=== PATIENT | male | born 1995 | race Asian ===

== ENCOUNTER 2020-01-03 16:28 | Emergency (ER) | payer OTHER ==
[2020-01-03] MEDS ORDERED: cefTRIAXone 1 GM VIAL IVP STA (17:16)
[2020-01-03 17:38] LABS: BASOPHILS % (AUTO) 0.4 %; EOSINOPHILS # (AUTO) 0.2 10^3/uL (0.0-0.7); EOSINOPHILS % (AUTO) 1.8 %; HGB - HEMOGLOBIN 16.4 g/dL (14.0-18.0); LYMPHOCYTES # (AUTO) 1.3 10^3/uL (1.5-3.5); LYMPHOCYTES % (AUTO) 11.5 %; MEAN CORPUSCULAR HEMOGLOBIN 31.2 pg (27.0-31.0); MEAN CORPUSCULAR HGB CONC 34.6 g/dL (32.0-36.0); MEAN CORPUSCULAR VOLUME 90.3 fL (80.0-94.0); MEAN PLATELET VOLUME 8.5 fL (7.4-11.4); MONOCYTES # (AUTO) 0.9 10^3/uL (0.0-1.0); NEUTROPHILS # (AUTO) 8.7 10^3/uL (1.5-6.6); NEUTROPHILS % (AUTO) 77.9 %; PLT - PLATELET COUNT 338 10^3/uL (130-450); RED BLOOD COUNT 5.25 10^6/uL (4.70-6.10); RED CELL DISTRIBUTION WIDTH 12.2 % (12.0-15.0); WHITE BLOOD COUNT 11.2 x10^3/uL (4.8-10.8)
[2020-01-03 17:51] LABS: BUN - BLOOD UREA NITROGEN 14 mg/dL (6-20); CALCIUM 9.6 mg/dL (8.5-10.3); CARBON DIOXIDE - CO2 32 mmol/L (21-32); CHLORIDE 97 mmol/L (101-111); CREATININE 0.9 mg/dL (0.6-1.2); GLUCOSE 104 mg/dL (70-100); SODIUM 137 mmol/L (135-145)
[2020-01-03 17:53] LABS: CRP - C-REACTIVE PROTEIN < 1.0 mg/dL (0-1.0)
--- NOTE | 2020-01-03 17:55 | ED Physician Documentation ---
History of Present Illness - Stated complaint Stated Complaint: RT HAND WOUND - Chief complaint Chief Complaint: Ext Problem - History obtained from History obtained from: Patient - History of Present Illness Timing: Yesterday Pain level max: 8 Pain level now: 8 - Additonal information Additional information: 24-year-old male presents to the emergency department with swelling and pain to the right middle finger. This started yesterday. No injury noted. He states it started at the distal aspect of the finger and has traveled proximally. Increased swelling and pain today. Unable to fully straighten the finger. No numbness or tingling. Tetanus up-to-date. The patient is right-handed Review of Systems Constitutional: denies: Fever, Chills GI: denies: Vomiting, Diarrhea Skin: denies: Rash PD PAST MEDICAL HISTORY - Past Medical History Past Medical History: No Derm: Eczema - Past Surgical History Past Surgical History: No - Present Medications Home Medications: Ambulatory Orders Medication Instructions Recorded Confirmed Cephalexin [Keflex] 500 mg PO Q6H #28 capsule 01/03/20 Sulfamethox/Trimeth 800/160 1 each PO BID #14 tablet 01/03/20 [Bactrim Ds 800/160] - Allergies Allergies/Adverse Reactions: Allergies Allergy/AdvReac Type Severity Reaction Status Date / Time hydrocodone AdvReac Rash Verified 01/03/20 16:47 - Social History Does the pt smoke?: No Smoking Status: Never smoker Does the pt drink ETOH?: Yes Does the pt have substance abuse?: No - Immunizations Immunizations are current?: Yes - POLST Patient has POLST: No PD ED PE NORMAL - Vitals Vital signs reviewed: Yes - General General: Alert and oriented X 3, No acute distress - HEENT HEENT: Moist mucous membranes - Derm Derm: Warm and dry - Extremities Extremities: Other (Right hand - Swelling and pain to the right third digit, mainly palmar aspect, starting at the distal phalanx and coming to the middle phalanx. No tenderness over the proximal phalanx or palm of the hand. No d rainage. Fingers held in slight flexion.) - Neuro Neuro: Alert and oriented X 3 Results - Vitals Vitals: Vital Signs - 24 hr 01/03/20 16:47 Temperature 37.2 C Heart Rate 90 Respiratory 16 Rate Blood Pressure 149/88 H O2 Saturation 98 Oxygen O2 Source Room air - Labs Labs: Laboratory Tests 01/03/20 01/03/20 01/03/20 17:28 17:28 17:28 WBC 11.2 H RBC 5.25 Hgb 16.4 Hct 47.4 MCV 90.3 MCH 31.2 H MCHC 34.6 RDW 12.2 Plt Count 338 MPV 8.5 Neut # (Auto) 8.7 H Lymph # (Auto) 1.3 L Ponce # (Auto) 0.9 Eos # (Auto) 0.2 Baso # (Auto) 0.0 Absolute Nucleated RBC 0.00 Nucleated RBC % 0.0 ESR 4 Sodium 137 Potassium 4.1 Chloride 97 L Carbon Dioxide 32 Anion Gap 8.0 BUN 14 Creatinine 0.9 Estimated GFR (MDRD) 102 Glucose 104 H Calcium 9.6 C-Reactive Protein < 1.0 PD MEDICAL DECISION MAKING - ED course Complexity details: reviewed results, re-evaluated patient, considered differential, d/w patient, d/w business systems consultant ED course: 24-year-old male with what appears to be a tenosynovitis. Reviewed the case with Dr. Clemens, Orthopedics, who recommends a dose of IV antibiotics and [place]. No tenderness over the palmar aspect of the hand. If he is not improved by tomorrow, he will likely need surgical intervention. Patient counseled regarding signs and symptoms for which I believe and urgent re-evaluation would be necessary. Patient with good understanding of and agreement to plan and is comfortable going home at this time This document was made in part using voice recognition software. While efforts are made to proofread this document, sound alike and grammatical errors may occur. Attempted to contact on-call orthopedics for [facility] several times, no answer received. Contacted the mayk and the officer on duty as well. Departure - Departure Disposition: Home, Self Care Clinical Impression: Tenosynovitis of finger Condition: Good Instructions: Infectious Tenosynovitis Follow-Up: [facility] [Provider Group] Prescriptions: Sulfamethox/Trimeth 800/160 [Bactrim Ds 800/160] 1 each PO BID #14 tablet Cephalexin [Keflex] 500 mg PO Q6H #28 capsule Comments: Elevate your hand as much as possible. [place]. Return here if they are unable to see you.
[2020-01-03] MEDS ORDERED: KETOROLAC 30 MG/ML VIAL IVP STA (17:57)
[2020-01-03 19:18] VITALS: BP 145/74
== END 2020-01-03 19:18 | disposition home or self-care (01) ==
LOC: ED 16:28
DX: M65.9 Synovitis and tenosynovitis, unspecified (principal)
CPT/HCPCS: 36415; 80048; 85025; 85651; 86140; 96374; 96375; 99284

== ENCOUNTER 2020-01-04 17:57 | Inpatient (IN) | payer OTHER ==
[2020-01-04] MEDS ORDERED: ONDANSETRON ODT 4 MG TABLET TL PRN (19:14)
[2020-01-04] MEDS ORDERED: HYDROmorphone 0.5 MG/0.5 ML SYRINGE IVP PRN (19:14)
[2020-01-04] MEDS ORDERED: ONDANSETRON 4 MG/2 ML VIAL IVP PRN (19:14)
[2020-01-04] MEDS ORDERED: oxyCODONE 5 MG TABLET PO PRN (19:14)
[2020-01-04] MEDS ORDERED: SODIUM CHLORIDE FLUSH 0.9% 10 ML SYRINGE IVP PRN (19:14)
--- NOTE | 2020-01-04 19:21 | HISTORY & PHYSICAL EXAMINATION ---
Chief Complaint - Chief Complaint Chief Complaint: infected finger History of Present Illness - Admitted From Admitted From:: Home - History Obtained From Records Reviewed: none History obtained from: Onofre Martin MD and patient Exam Limitations: none - History of Present Illness HPI Comment/Other: He is active duty [employer] and has been followed by Dr. Martin for infected finger. He was seen in the emergency room on January 02. He presented with a 1 day history of a gradually worsening pain in the distal tip of his right middle finger. The pain and swelling and redness progressed proximally and he was felt to have an infected flexor tenosynovitis. His white cell count was 11,000 and his sed rate was 4. He was sent home from the emergency room with oral antibiotics. He was seen in follow-up today in the clinic on the [employer] [facility]. The finger/hand looks worse. Dr. Martin contacted our hospitalist and asked for the patient to be directly admitted. He specifically asked for Zosyn and vancomycin. He will see the patient in consult tomorrow. The patient states that there is no trauma to his middle finger. It had started in the morning of the . The only thing he can remember is that he has a gecko, the gecko pooped on his hand but more caudally toward his wrist. He does have eczema but the eczema is on his forearms tops of his hands and not on his fingers. He does not have any open skin that he can see. 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 But he rarely has to put his hands on the engines now. History - Past Medical History Cardiovascular: reports: None Respiratory: reports: None Neuro: reports: None Endocrine/Autoimmune: reports: None GI: reports: None PRINTER'S DEVIL: reports: None : reports: None HEENT: reports: None Psych: reports: None Musculoskeletal: reports: None Derm: reports: Eczema (He uses topical triamcinolone, or creams. Since moving to [facility] is much better than when he was in [place].) MRSA Hx?: No - Family & Social History Family History Comment/Other: Dad is 60 years old. Healthy. Mom is 13 years younger at 47. Healthy. 2 younger sisters. The middle sister has eczema but that is about it. No children. Living arrangement: At home Living Situation: With friend(s) (3 roommates in a house in [place]) Social History Notes: Born and raised in [place]. Family is still there. Left [place] to join the [employer]. He has been in the [employer] for 6 years. 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 Smokes a few times a week with vaping. Has not drank for 3 months because of COVID. Before that he drank only once a week. Has no history of recreational substance abuse. - Substance History Use: Uses substance without health or social issues: NONE Abuse: Recurrent use of substance despite neg consequences: NONE Dependence: Experiences withdrawal or developed tolerances: NONE - POLST Patient has POLST: No POLST Status: Full Code Meds/Allgy - Home Medications Home Medications: Ambulatory Orders Medication Instructions Recorded Confirmed Cephalexin [Keflex] 500 mg PO Q6H #28 capsule 01/03/20 Sulfamethox/Trimeth 800/160 1 each PO BID #14 tablet 01/03/20 [Bactrim Ds 800/160] - Allergies Allergies/Adverse Reactions: Allergies Allergy/AdvReac Type Severity Reaction Status Date / Time hydrocodone AdvReac Rash Verified 01/03/20 16:47 Review of Systems - Constitutional Constitutional: denies: Fatigue, Fever, Chills, Malaise, Weakness, Poor appetite - Eyes Eyes: denies: Pain, Amaurosis, Blurred vision, Spots in vision, Vision loss - Ears, Nose & Throat Ears, Nose & Throat: denies: Ear pain, Hearing loss, Hearing aids, Tinnitus, Nasal pain, Nasal obstruction, Nasal congestion, Sore throat, Hoarseness - Cardiovascular Cariovascular: denies: Irregular heart rate, Palpitations, Chest pain, Edema, Lightheadedness, Syncope, Exertional dyspnea, Decr. exercise tolerance - Respiratory Respiratory: denies: Cough, Sputum production, Wheezing, Orthopnea, SOB at rest - Gastrointestinal Gastrointestinal: denies: Abdominal pain, Abdominal distention, Constipation, Diarrhea, Change in bowel habits, Black stools, Bloody stools, Nausea, Vomiting - Genitourinary Genitourinary: denies: Dysuria, Frequency, Urgency, Hematuria, Flank pain, Nocturia - Musculoskeletal Musculoskeletal: reports: Back pain. denies: Muscle pain, Muscle aches, Stiffness, Gout, Joint pain - Integumentary Integumentary: reports: Rash (Eczema). denies: Pruritis, Lesions, Dryness - Neurological Neurological: denies: General weakness, Focal weakness, Headache, Dizziness, Memory problems, Pre-existing deficit, Abnormal gait, Seizures - Psychiatric Psychiatric: denies: Depression, Anxiety, Suicidal, Hallucinations - Endocrine Endocrine: denies: Polyuria, Polydypsia, Polyphagia - Hematologic/Lymphatic Hematologic/Lymphatic: denies: Anemia, Bruising, Blood clots Prior Level of Functionality: Completely independent with all activities of daily living. Driving. Still working full-time. No use of durable medical equipment whatsoever. Exam - Vital Signs Reviewed Vital Signs: Yes - Physical Exam General Appearance: positive: No acute distress, Alert, Other (5 foot 7 inch young male. Excellent lean body mass structure. Comfortable. Laughing with nurse. Cannot wait to eat his maple walnut donut.) Eyes Bilateral: positive: PERRL, EOMI ENT: positive: Pharynx nml Neck: positive: No JVD. negative: Stiff neck, Carotid bruit Respiratory: positive: Chest non-tender, No respiratory distress, Breath sounds nml Cardiovascular: positive: Regular rate & rhythm. negative: JVD present, Systolic murmur, Gallop/S4, Friction rub Peripheral Pulses: positive: 1+ Abdomen: positive: Non-tender, No organomegaly, Nml bowel sounds, No distention Back: positive: Nml inspection Skin: positive: Warm, Dry, Skin rash Extremities: positive: Non-tender, Full ROM, Nml appearance, Other (right hand wraped by Dr. martin. wrap extends prox to elbow. Pt shows me photo of swollen, red, middle finger.) Neurologic/Psychiatric: positive: Oriented x3, CN's nml (2-12), Motor nml, Sensation nml Conclusion/Plan - Problem List (1) Tenosynovitis of finger Conclusion/Plan: With probable cellulitis on top of that. No history of trauma. Does have some skin breakdown from eczema and does have a gecko. I do not know if this adds to his history or not. Plan: Inpatient admission Vancomycin and Zosyn per Dr. Martin Daily BMP and CMP, sed rate, C-reactive protein I have encouraged the patient to ambulate in the hallway using a mask. Regular diet. Symptom management of nausea, headache, fever, pain provided with as needed medicines. (2) Eczema Conclusion/Plan: PRN steroids and creams per his request. Qualifiers: Eczema type: intrinsic Qualified Code(s): L20.84 - Intrinsic (allergic) eczema Core Measures - Anticipated LOS I expect patient to be DC'd or transferred within 96 hours.: Yes - DVT/VTE - Prophylaxis VTE/DVT Device ordered at admit?: Yes
[2020-01-04] MEDS: ACETAMINOPHEN 325 MG TABLET PO PRN (19:43)
[2020-01-04] MEDS: PIPERACILLIN/TAZOBACTAM 3.375 GM in SODIUM CHLORIDE 0.9% MINIBAG 100 ML IV SCH (19:50)
[2020-01-04] MEDS ORDERED: SODIUM CHLORIDE 0.9% 1,000 ML IV SCH (20:00)
[2020-01-04] MEDS ORDERED: VANCOMYCIN INJ 1.5 GM in SODIUM CHLORIDE 0.9% 500 ML IV SCH (21:00)
[2020-01-05] MEDS: SODIUM CHLORIDE FLUSH 0.9% 10 ML SYRINGE IVP SCH ×3 (00:20→16:07)
[2020-01-05] MEDS: PIPERACILLIN/TAZOBACTAM 3.375 GM in SODIUM CHLORIDE 0.9% MINIBAG 100 ML IV SCH ×4 (02:08→18:39)
[2020-01-05 05:05] LABS: BASOPHILS # (AUTO) 0.1 10^3/uL (0.0-0.1); BASOPHILS % (AUTO) 0.6 %; EOSINOPHILS # (AUTO) 0.3 10^3/uL (0.0-0.7); EOSINOPHILS % (AUTO) 2.8 %; HGB - HEMOGLOBIN 13.7 g/dL (14.0-18.0); LYMPHOCYTES # (AUTO) 2.4 10^3/uL (1.5-3.5); LYMPHOCYTES % (AUTO) 23.4 %; MEAN CORPUSCULAR HGB CONC 33.9 g/dL (32.0-36.0); MEAN CORPUSCULAR VOLUME 88.4 fL (80.0-94.0); MEAN PLATELET VOLUME 8.9 fL (7.4-11.4); MONOCYTES # (AUTO) 1.3 10^3/uL (0.0-1.0); MONOCYTES % (AUTO) 12.5 %; NEUTROPHILS # (AUTO) 6.2 10^3/uL (1.5-6.6); NEUTROPHILS % (AUTO) 60.3 %; PLT - PLATELET COUNT 273 10^3/uL (130-450); RED BLOOD COUNT 4.57 10^6/uL (4.70-6.10); RED CELL DISTRIBUTION WIDTH 12.2 % (12.0-15.0); WHITE BLOOD COUNT 10.3 x10^3/uL (4.8-10.8)
[2020-01-05 05:20] LABS: CALCIUM 8.6 mg/dL (8.5-10.3); CREATININE 1.1 mg/dL (0.6-1.2); CRP - C-REACTIVE PROTEIN 3.2 mg/dL (0-1.0)
--- NOTE | 2020-01-05 07:23 | CONSULTATION NOTE ---
Referring Provider Name of Referring Provider:: Fauzia Cerratol Consult Date: 01/04/20 Chief Complaint - Chief Complaint Chief Complaint: Right Middle Finger Infectious Flexor Tenosynovitis History of Present Illness - Admitted From Admitted From:: [facility] - History of Present Illness HPI Comment/Other: This is a 24-year-old male who began having right middle finger pain and swelling on Thursday evening after work. On Thursday his pain was worse so he presented to the [facility] emergency room where flexor Lety synovitis. An orthopedics consultation was made and it was stated that this condition may require surgery and that he should follow-up with the [facility] on Thursday. The patient received IV antibiotics and then was discharged from the emergency room with oral antibiotics with strict instructions to follow-up with the [facility]. [facility] providers were attempted to be contacted per the emergency room note but no contact was made. The patient presented to the orthopedics clinic Thursday with a history and examination concerning for infectious flexor Lety synovitis of the right middle finger. Under local anesthetic surgical decompression was performed through 2 incision technique in the [facility] clinic. Purulence was found on surgical decompression and so admission with IV antibiotics for 2 days was recommended. He was placed into a volar resting splint with the instructions for strict elevation. The hospitalist was contacted by [facility] and admission directly was arranged He was admitted to the hospital last night and began receiving IV. Overnight he reports that his pain is improved significantly. He does have pain in the palm at the surgical site but no pain distally in the finger. He is able to feel his entire hand and he is able to move his fingers without significant pain. He has been elevating the hand and has left his splint on. He denies any new complaints. He denies fevers, chills, or sweats. History - Past Medical History Cardiovascular: reports: None Respiratory: reports: None Neuro: reports: None Endocrine/Autoimmune: reports: None GI: reports: None ORACLE APPLICATION ARCHITECT: reports: None : reports: None HEENT: reports: None Psych: reports: None Musculoskeletal: reports: None Derm: reports: Eczema (He uses topical triamcinolone, or creams. Since moving to [facility] is much better than when he was in [place].) MRSA Hx?: No - Family & Social History Family History Comment/Other: Dad is 60 years old. Healthy. Mom is 13 years younger at 47. Healthy. 2 younger sisters. The middle sister has eczema but that is about it. No children. Living arrangement: At home Living Situation: With friend(s) (3 roommates in a house in [place]) Social History Notes: Born and raised in [place]. Family is still there. Left [place] to join the [employer]. He has been in the [employer] for 6 years. 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 Smokes a few times a week with vaping. Has not drank for 3 months because of COVID. Before that he drank only once a week. Has no history of recreational substance abuse. - Substance History Use: Uses substance without health or social issues: NONE Abuse: Recurrent use of substance despite neg consequences: NONE Dependence: Experiences withdrawal or developed tolerances: NONE - POLST Patient has POLST: No POLST Status: Full Code Meds/Allgy - Home Medications Home Medications: Ambulatory Orders Medication Instructions Recorded Confirmed Cephalexin [Keflex] 500 mg PO Q6H #28 capsule 01/03/20 Sulfamethox/Trimeth 800/160 1 each PO BID #14 tablet 01/03/20 [Bactrim Ds 800/160] - Allergies Allergies/Adverse Reactions: Allergies Allergy/AdvReac Type Severity Reaction Status Date / Time hydrocodone Allergy Intermediate Rash Verified 01/04/20 20:14 Exam - Vital Signs Vital Signs: Vital Signs x48h Temp Pulse Resp BP Pulse Ox 01/04/20 23:33 36.6 C 66 18 134/62 H 100 - Physical Exam Comments/Other: Generally he is well-appearing. The splint was removed from the right arm and an examination of the right arm shows that the incisions remain well approximated. There is a wick in the palm incision that has been weeping appropriately. There is no evidence of spreading infection or cellulitis. There is no fusiform swelling. He is able to flex the finger with short arc without significant pain. All his other fingers are moving well also. He has normal sensation over the radial and ulnar aspects of the right middle finger and there is good capillary refill in the finger. There is stiffness in the finger which is to be expected Conclusion/Plan - Diagnosis Diagnosis: Right middle finger infectious flexor Tenosynovitis - Lab Results Fish Bones: 01/05/20 04:40 01/05/20 04:40 - Other Other Results/Comments: I explained his diagnosis to him. There are no culture results back from the [facility] as of yet and I do not expect that we will receive them within the next day. Plan: Continue IV antibiotics for an additional 24 hours Strict elevation of the hand Continue volar resting splint N.p.o. at midnight tonight. I will examine him Thursday morning and if his examination is worsened repeat surgery may be required. However, I think this is unlikely If his examination continues to improve he should be discharged on oral antibiotics starting tomorrow morning. I recommend oral pain medications Please contact me at [phone] with any orthopedic questions. I will be in clinic in [place] today but I will be able to respond to phone calls. If his c linical situation worsens I would be available to wash him out later this afternoon if needed.
[2020-01-05] MEDS ORDERED: VANCOMYCIN INJ 1 GM, VANCOMYCIN INJ 500 MG in SODIUM CHLORIDE 0.9% 500 ML IV SCH (09:00)
--- NOTE | 2020-01-05 11:04 | PHARMACY PROGRESS NOTE ---
- Best Possible Medication History Admit Date and Time: 01/04/201913 Processed by: Pharmacy Medication History completed: Yes Patient Interview: Completed Secondary Source(s): Insurance records As the person ultimately responsible for medication therapy, providers are able to order a medication from an existing home medication list in [facility] via the "Reconcile Routine" prior to Confirmation of that medication by clinical support associate. Such practice is discouraged except when the physician, in their clinical judgment, deems that a medical need exists for a medication without regard to previous use.
--- NOTE | 2020-01-05 12:53 | PROVIDER PROGRESS NOTE ---
Subjective - Prog Note Date Prog Note Date: 01/05/20 - Subjective Pt reports feeling: Improved Subjective: pt Report his middle finger pain is much better. He denies fever or chills. Orthopedics surgeon already saw the patient this morning, pt has volar resting splint. The drainage culture was done in orthopedics office and is pending. pt has intact neurovasclar examination at the distal of right middle finger Current Medications - Current Medications Current Medications: Active Medications Acetaminophen (Tylenol) 650 mg PO Q4HR PRN PRN Reason: Pain 1 to 4 Last Admin: 01/04/20 19:43 Dose: 650 mg Documented by: Hydromorphone HCl (Dilaudid Inj Syringe) 0.5 mg IVP Q2H PRN PRN Reason: Pain 8 to 10 Last Admin: 01/04/20 19:44 Dose: 0.5 mg Documented by: Piperacillin Sod/Tazobactam (Sod 3.375 gm/ Sodium Chloride) 100 mls @ 25 mls/hr IV Q8H FOR[facility], [facility]1983 Last Admin: 01/05/20 11:11 Dose: 25 mls/hr Documented by: Vancomycin HCl 1 gm/Vancomycin HCl 500 mg/ Sodium Chloride 500 mls @ 250 mls/hr IV Q12H [facility], [facility]1983 Last Infusion: 01/05/20 11:11 Dose: Infused Documented by: Ondansetron HCl (Zofran Odt) 4 mg TL Q6HR PRN PRN Reason: Nausea / Vomiting Ondansetron HCl (Zofran Inj) 4 mg IVP Q6HR PRN PRN Reason: Nausea / Vomiting Oxycodone HCl (Roxicodone) 5 mg PO Q4HR PRN PRN Reason: Pain 5 to 7 Sodium Chloride (Normal Saline Flush 0.9%) 10 ml IVP PRN PRN PRN Reason: NEEDED PER PROVIDER ORDERS Sodium Chloride (Normal Saline Flush 0.9%) 10 ml IVP 0100,0900,1700 FOR[facility], [facility] Last Admin: 01/05/20 08:42 Dose: 10 ml Documented by: Ibuprofen [Motrin] 800 mg PO Q6H PRN 01/05/20 Objective - Vital Signs/Intake & Output Intake & Output: Intake & Output 01/02/20 01/03/20 01/04/20 01/05/20 23:59 23:59 23:59 23:59 Intake Total 1100 2640 Balance 1100 2640 - Objective General Appearance: positive: No acute distress, Alert. negative: Lethargic Eyes Bilateral: positive: Normal inspection, PERRL, No lid inflammation ENT: positive: ENT inspection nml, Pharynx nml, No signs of dehydration. negative: Purulent nasal drainage Neck: positive: Nml inspection, Thyroid nml, Trachea midline. negative: Thyromegaly, Stiff neck, Tracheal deviation Respiratory: positive: Chest non-tender, No respiratory distress, Breath sounds nml. negative: Wheezes, Rales, Rhonchi Cardiovascular: positive: Regular rate & rhythm, No murmur, No gallop. negative: Tachycardia, Bradycardia, Systolic murmur, Diastolic murmur Peripheral Pulses: 2+ Radial (R), 2+ Radial (L), 2+ Dorsalis pedis (R), 2+ Dorsalis pedis (L) Abdomen: positive: Non-tender, No organomegaly, Nml bowel sounds, No distention. negative: Tenderness, Guarding, Rebound Back: positive: Nml inspection. negative: CVA tenderness (R), CVA tenderness (L) Skin: positive: Color nml, No rash, Warm, Dry. negative: Cyanosis, Diaphoresis, Pallor Extremities: positive: Other (intact neurovasclar examination at the distal of right middle finger). negative: Calf tenderness, Sravani's sign/cords Neurologic/Psychiatric: positive: Oriented x3, Motor nml, Sensation nml, Mood/affect nml. negative: Weakness, Sensory loss, Facial droop, Slurred/abnml speech, Depressed mood/affect - Lab Results Fish Bones: 01/05/20 04:40 01/05/20 04:40 Other Labs: Lab Results x24hrs 01/05/20 01/05/20 01/05/20 Range/Units 04:40 04:40 04:40 WBC 10.3 (4.8-10.8) x10^3/uL RBC 4.57 L (4.70-6.10) 10^6/uL Hgb 13.7 L (14.0-18.0) g/dL Hct 40.4 L (42.0-52.0) % MCV 88.4 (80.0-94.0) fL MCH 30.0 (27.0-31.0) pg MCHC 33.9 (32.0-36.0) g/dL RDW 12.2 (12.0-15.0) % Plt Count 273 (130-450) 10^3/uL MPV 8.9 (7.4-11.4) fL Neut # (Auto) 6.2 (1.5-6.6) 10^3/uL Lymph # (Auto) 2.4 (1.5-3.5) 10^3/uL [place] # (Auto) 1.3 H (0.0-1.0) 10^3/uL Eos # (Auto) 0.3 (0.0-0.7) 10^3/uL Baso # (Auto) 0.1 (0.0-0.1) 10^3/uL Absolute Nucleated RBC 0.00 x10^3/uL Nucleated RBC % 0.0 /100WBC ESR 17 H (0-15) mm/Hr Sodium 136 (135-145) mmol/L Potassium 4.0 (3.5-5.0) mmol/L Chloride 106 (101-111) mmol/L Carbon Dioxide 24 (21-32) mmol/L Anion Gap 6.0 (6-13) BUN 15 (6-20) mg/dL Creatinine 1.1 (0.6-1.2) mg/dL Estimated GFR (MDRD) 81 L (>89) Glucose 104 H (70-100) mg/dL Calcium 8.6 (8.5-10.3) mg/dL C-Reactive Protein 3.2 H (0-1.0) mg/dL ABX Reporting Has patient been on IV antibiotics over the past 48 hours?: Yes Assessment/Plan - Problem List (1) Tenosynovitis of finger Impression: Improved. Continue vancomycin and Zosyn per surgeon, consult with orthopedics. Keep NPO for tomorrow morning. Will have intravenous IV fluids when patient is at NPO.Continue pain control as needed, Encourage patient ambulation, Continue vital signs and engineer geophysical laboratory patient. (2) Eczema Conclusion/Plan: PRN steroids and creams per his request.
[2020-01-05] MEDS: ACETAMINOPHEN 325 MG TABLET PO PRN (16:06)
[2020-01-06] MEDS ORDERED: SODIUM CHLORIDE 0.9% 1,000 ML IV SCH ×3 (01:00→07:21)
[2020-01-06] MEDS: SODIUM CHLORIDE FLUSH 0.9% 10 ML SYRINGE IVP SCH ×2 (03:31→09:04)
[2020-01-06] MEDS: PIPERACILLIN/TAZOBACTAM 3.375 GM in SODIUM CHLORIDE 0.9% MINIBAG 100 ML IV SCH ×2 (03:31→10:42)
[2020-01-06 05:31] LABS: BASOPHILS # (AUTO) 0.1 10^3/uL (0.0-0.1); BASOPHILS % (AUTO) 0.7 %; EOSINOPHILS # (AUTO) 0.4 10^3/uL (0.0-0.7); EOSINOPHILS % (AUTO) 3.1 %; HGB - HEMOGLOBIN 15.1 g/dL (14.0-18.0); LYMPHOCYTES # (AUTO) 2.9 10^3/uL (1.5-3.5); LYMPHOCYTES % (AUTO) 23.8 %; MEAN CORPUSCULAR HEMOGLOBIN 30.8 pg (27.0-31.0); MEAN CORPUSCULAR HGB CONC 34.3 g/dL (32.0-36.0); MEAN CORPUSCULAR VOLUME 89.8 fL (80.0-94.0); MONOCYTES # (AUTO) 1.1 10^3/uL (0.0-1.0); MONOCYTES % (AUTO) 8.8 %; NEUTROPHILS # (AUTO) 7.7 10^3/uL (1.5-6.6); NEUTROPHILS % (AUTO) 63.1 %; PLT - PLATELET COUNT 339 10^3/uL (130-450); WHITE BLOOD COUNT 12.2 x10^3/uL (4.8-10.8)
[2020-01-06 06:03] LABS: CALCIUM 9.4 mg/dL (8.5-10.3); CREATININE 1.3 mg/dL (0.6-1.2); CRP - C-REACTIVE PROTEIN 1.9 mg/dL (0-1.0)
--- NOTE | 2020-01-06 07:37 | PROVIDER PROGRESS NOTE ---
Subjective - Prog Note Date Prog Note Date: 01/06/20 Prog Note Time: 07:35 - Subjective Pt reports feeling: Improved, No change (Stable to slightly improved since yesterday. Greatly improved since I&D.) Subjective: 24yo M POD#2 s/p R LF flexor tendon sheath irrigation and drainage. Doing well. Pain controlled off narcotcis. IV abx ongoing. Cultures pending. NPO overnight for possible OR today pending AM exam. Denies fever or chills. Objective - Vital Signs/Intake & Output Vital Signs: Vital Signs x48h Temp Pulse Resp BP Pulse Ox 01/05/20 23:40 36.7 C 66 16 132/71 H 99 Intake & Output: Intake & Output 01/03/20 01/04/20 01/05/20 01/06/20 23:59 23:59 23:59 23:59 Intake Total 1100 3362 Balance 1100 3362 - Objective General Appearance: positive: No acute distress, Alert Eyes Bilateral: positive: Normal inspection Extremities: positive: Other (Right hand: Splint and dressing taken down. Wick in palm with appropriate drainage. Mild TTP over P1, NTTP P2 and P3. Some pain with passive extension. No pain with passive flexion. TTP at palmar incision. No erythema. No fusiform swelling. SILT radial and ulnar border of finger. Splint replaced.) Neurologic/Psychiatric: positive: Oriented x3 - Lab Results Fish Bones: 01/06/20 04:30 01/06/20 04:30 Other Labs: Lab Results x24hrs 01/06/20 01/06/20 01/06/20 Range/Units 04:30 04:30 04:30 WBC 12.2 H (4.8-10.8) x10^3/uL RBC 4.90 (4.70-6.10) 10^6/uL Hgb 15.1 (14.0-18.0) g/dL Hct 44.0 (42.0-52.0) % MCV 89.8 (80.0-94.0) fL MCH 30.8 (27.0-31.0) pg MCHC 34.3 (32.0-36.0) g/dL RDW 12.0 (12.0-15.0) % Plt Count 339 (130-450) 10^3/uL MPV 9.0 (7.4-11.4) fL Neut # (Auto) 7.7 H (1.5-6.6) 10^3/uL Lymph # (Auto) 2.9 (1.5-3.5) 10^3/uL Towner # (Auto) 1.1 H (0.0-1.0) 10^3/uL Eos # (Auto) 0.4 (0.0-0.7) 10^3/uL Baso # (Auto) 0.1 (0.0-0.1) 10^3/uL Absolute Nucleated RBC 0.00 x10^3/uL Nucleated RBC % 0.0 /100WBC ESR 20 H (0-15) mm/Hr Sodium 138 (135-145) mmol/L Potassium 4.1 (3.5-5.0) mmol/L Chloride 105 (101-111) mmol/L Carbon Dioxide 25 (21-32) mmol/L Anion Gap 8.0 (6-13) BUN 14 (6-20) mg/dL Creatinine 1.3 H (0.6-1.2) mg/dL Estimated GFR (MDRD) 67 L (>89) Glucose 99 (70-100) mg/dL Calcium 9.4 (8.5-10.3) mg/dL C-Reactive Protein 1.9 H (0-1.0) mg/dL Nasal Screen MRSA (PCR) (NEGATIVE) 01/05/20 Range/Units 11:20 WBC (4.8-10.8) x10^3/uL RBC (4.70-6.10) 10^6/uL Hgb (14.0-18.0) g/dL Hct (42.0-52.0) % MCV (80.0-94.0) fL MCH (27.0-31.0) pg MCHC (32.0-36.0) g/dL RDW (12.0-15.0) % Plt Count (130-450) 10^3/uL MPV (7.4-11.4) fL Neut # (Auto) (1.5-6.6) 10^3/uL Lymph # (Auto) (1.5-3.5) 10^3/uL Towner # (Auto) (0.0-1.0) 10^3/uL Eos # (Auto) (0.0-0.7) 10^3/uL Baso # (Auto) (0.0-0.1) 10^3/uL Absolute Nucleated RBC x10^3/uL Nucleated RBC % /100WBC ESR (0-15) mm/Hr Sodium (135-145) mmol/L Potassium (3.5-5.0) mmol/L Chloride (101-111) mmol/L Carbon Dioxide (21-32) mmol/L Anion Gap (6-13) BUN (6-20) mg/dL Creatinine (0.6-1.2) mg/dL Estimated GFR (MDRD) (>89) Glucose (70-100) mg/dL Calcium (8.5-10.3) mg/dL C-Reactive Protein (0-1.0) mg/dL Nasal Screen MRSA (PCR) NEGATIVE (NEGATIVE) - Other Results/Comments Other Results/Comments: CRP downtrending (3.2-->1.9) Assessment/Plan - Problem List (1) Tenosynovitis of finger Impression: POD#2 s/p R LF I&D for presumed infectious FTS. Progress appropriate. Plan: - Continue IV abx this AM, likely transition to orals. - OK to eat - Continue splint and elevation. - Dr. Martin will be in later this AM to assess patient and discuss discharge.
[2020-01-06] MEDS: ACETAMINOPHEN 325 MG TABLET PO PRN (07:41)
[2020-01-06 08:37] VITALS: BP 139/79
[2020-01-06 12:56] LABS: BASOPHILS % (AUTO) 0.5 %; EOSINOPHILS # (AUTO) 0.4 10^3/uL (0.0-0.7); EOSINOPHILS % (AUTO) 4.3 %; LYMPHOCYTES # (AUTO) 1.7 10^3/uL (1.5-3.5); LYMPHOCYTES % (AUTO) 20.4 %; MEAN CORPUSCULAR HEMOGLOBIN 31.3 pg (27.0-31.0); MEAN CORPUSCULAR HGB CONC 35.1 g/dL (32.0-36.0); MEAN CORPUSCULAR VOLUME 89.1 fL (80.0-94.0); MEAN PLATELET VOLUME 8.7 fL (7.4-11.4); MONOCYTES # (AUTO) 0.7 10^3/uL (0.0-1.0); MONOCYTES % (AUTO) 8.5 %; NEUTROPHILS # (AUTO) 5.6 10^3/uL (1.5-6.6); NEUTROPHILS % (AUTO) 65.9 %; PLT - PLATELET COUNT 318 10^3/uL (130-450); RED BLOOD COUNT 4.79 10^6/uL (4.70-6.10); RED CELL DISTRIBUTION WIDTH 12.1 % (12.0-15.0); WHITE BLOOD COUNT 8.5 x10^3/uL (4.8-10.8)
[2020-01-06 13:05] LABS: CALCIUM 8.9 mg/dL (8.5-10.3); CREATININE 1.3 mg/dL (0.6-1.2)
--- NOTE | 2020-01-06 13:33 | Discharge Plan ---
Discharge Plan Problem Reviewed?: Yes Disposition: Home, Self Care Condition: Stable Diet: Regular Activity Restrictions: Activity as Tolerated Health Concerns: cellulitis Plan of Treatment: continue take your home antibiotics as the schedule, followup with Dr. Martin on Next Thursday01/09/2020. Care Goals: stabilization and improvement/healing of your infection Assessment: discussed the care plan with you, you understood and agreed. Additional Instructions or Follow Up instructions: you may followup with Dr. Martin on Next Thursday01/09/2020. Should your symptoms return or worsen, you may present ER or call 911 for help. No Smoking: If you smoke, Please STOP! Call for help. Follow-up with: Tim Molina MD [Primary Care Provider] -
--- NOTE | 2020-01-06 13:38 | DISCHARGE SUMMARY ---
"Discharge Summary Admit Date: 01/04/20 Discharge Date: 01/06/20 Discharging Provider: Magno Metcalf Primary Care Provider: Tim Bragg Condition at Discharge: Stable Discharge Disposition: 01 Home, Self Care Discharge Facility Name: home - DIAGNOSES Discharge Diagnoses with Status of Each Condition: (1) Tenosynovitis of finger Improved and stable. Patient's WBC is normal, patient Has no fever or chills.Patient denies pain. Distal of middle finger neurovasular examination is intact. Came and examined the patient, recommended pt can be d/c today, continue pt's two home antibiotics, follow up with his office in next Thursday. (2) Eczema Stable - HPI History of Present Illness: refer from Dr. Alfonso's HPI on 01/04/2020 He is active duty [employer] and has been followed by Dr. Martin for infected finger. He was seen in the emergency room on January 02. He presented with a 1 day history of a gradually worsening pain in the distal tip of his right middle finger. The pain and swelling and redness progressed proximally and he was felt to have an infected flexor tenosynovitis. His white cell count was 11,000 and his sed rate was 4. He was sent home from the emergency room with oral antibiotics. He was seen in follow-up today in the clinic on the [employer] [facility]. The finger/hand looks worse. Dr. Martin contacted our hospitalist and asked for the patient to be directly admitted. He specifically asked for Zosyn and vancomycin. He will see the patient in consult tomorrow. The patient states that there is no trauma to his middle finger. It had started in the morning of the . The only thing he can remember is that he has a gecko, the gecko pooped on his hand but more caudally toward his wrist. He does have eczema but the eczema is on his forearms tops of his hands and not on his fingers. He does not have any open skin that he can see. 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 But he rarely has to put his hands on the engines now. - CONSULTS | PROCEDURES Consultations: Procedures: I&D done before admission at Orthopedics office - HOSPITAL COURSE Hospital Course: Patient was direct admitted from [place] [facility] 's office for Right Middle Finger Infectious with Flexor Tenosynovitis. Patient was treated with intravenous of antibiotic. After treatment, patient has no fever or chills, WBC is normal, Clinically patient has great improvement. Patient has no pain, Distal middle finger neurovascular examination intact. Orthopedic surgeon came and examined patient, recommended patient can be DC discharge today, recommended Continue patient home 2 antibiotics, follow-up with orthopedics office in the next Thursday. - ALLERGIES Allergies/Adverse Reactions: Allergies Allergy/AdvReac Type Severity Reaction Status Date / Time hydrocodone Allergy Intermediate Rash Verified 01/04/20 20:14 - MEDICATIONS Home Medications: Ambulatory Orders Medication Instructions Recorded Confirmed Cephalexin [Keflex] 500 mg PO Q6H #28 capsule 01/03/20 01/05/20 Sulfamethox/Trimeth 800/160 1 each PO BID #14 tablet 01/03/20 01/05/20 [Bactrim Ds] Ibuprofen [Motrin] 800 mg PO Q6H PRN 01/05/20 01/05/20 - PHYSICAL EXAM AT DISCHARGE General Appearance: positive: No acute distress, Alert. negative: Lethargic Eyes Bilateral: positive: Normal inspection, PERRL, No lid inflammation ENT: positive: ENT inspection nml, Pharynx nml, No signs of dehydration. negative: Purulent nasal drainage Neck: positive: Nml inspection, Thyroid nml, No JVD. negative: Thyromegaly, Stiff neck, Tracheal deviation Respiratory: positive: Chest non-tender, No respiratory distress, Breath sounds nml. negative: Wheezes, Rales, Rhonchi Cardiovascular: positive: Regular rate & rhythm, No murmur, No gallop. negative: Irregularly irregular, Tachycardia, Bradycardia, Systolic murmur, Diastolic murmur Peripheral Pulses: positive: 2+ Abdomen: positive: Non-tender, No organomegaly, Nml bowel sounds, No distention. negative: Tenderness, Guarding, Rebound Back: positive: Nml inspection. negative: CVA tenderness (R), CVA tenderness (L) Skin: positive: Color nml, No rash, Warm, Dry. negative: Cyanosis, Diaphoresis, Pallor Extremities: positive: Other (pt has intact neurovascular exmaination on distal right middler finger. pt's right hand was wrapped with support splint. ). negative: Calf tenderness, Sravani's sign/cords Neurologic/Psychiatric: positive: Oriented x3, Sensation nml, Mood/affect nml. negative: Weakness, Sensory loss, Facial droop, Slurred/abnml speech, Depressed mood/affect - LABS Result Diagrams: 01/06/20 12:50 01/06/20 12:50 - FOLLOW UP Follow Up: continue take your home antibiotics as the schedule, followup with Dr. Martin on Next Thursday01/09/2020. you may followup with Dr. Martin on Next Thursday01/09/2020. Should your symptoms return or worsen, you may present ER or call 911 for help. - TIME SPENT Time Spent in Discharge (Minutes): 30"
== END 2020-01-06 14:05 | disposition home or self-care (01) | DRG 558 ==
LOC: UNDOADMIN 19:02 → MS2 19:02
PROVIDERS: ADMIT Specialist; ATTEND Nurse Practitioner Gerontology
DX: M65.141 Other infective (teno)synovitis, right hand (principal); L20.84 Intrinsic (allergic) eczema; F17.290 Nicotine dependence, other tobacco product, uncomplicated
CPT/HCPCS: 36415; 80048; 85025; 85651; 86140; 87640; A9270; J1170; J3370

== ENCOUNTER 2021-07-24 19:16 | Emergency (ER) | payer OTHER ==
[2021-07-24] MEDS ORDERED: KETOROLAC 60 MG/2 ML VIAL IM STA (20:25)
[2021-07-24] MEDS ORDERED: CHERRY SYRUP 10 ML UDC PO ONE (20:25)
[2021-07-24] MEDS ORDERED: DEXAMETHASONE 10 MG/ML VIAL PO STA (20:25)
[2021-07-24] MEDS ORDERED: methocarbamoL 500 MG TABLET PO STA (20:25)
--- NOTE | 2021-07-24 20:32 | ED Physician Documentation ---
History of Present Illness - Stated complaint Stated Complaint: LOWER BACK PX - Chief complaint Chief Complaint: Back Pain - History obtained from History obtained from: Patient - History of Present Illness Timing: Today Pain level max: 7 Pain level now: 7 - Additonal information Additional information: Patient is a 25-year-old male who states he has a longstanding history of chronic back pain and is currently undergoing physical therapy for this. He states he was getting out of his car today when he felt a twinge in his back and feels like his back is "locked up". No numbness or tingling. No loss of bowel or bladder control. No IV drug use. No fevers. No other recent injury. Review of Systems Constitutional: denies: Fever, Chills GI: denies: Vomiting, Diarrhea : denies: Dysuria, Frequency, Hesitancy, Incontinent Skin: denies: Rash Musculoskeletal: denies: Neck pain Neurologic: denies: Headache PD PAST MEDICAL HISTORY - Past Medical History Cardiovascular: None Respiratory: None Neuro: None Endocrine/Autoimmune: None GI: None FIELD HAULER: None : None HEENT: None Psych: None Musculoskeletal: None Derm: Eczema - Past Surgical History Past Surgical History: No - Present Medications Home Medications: Ambulatory Orders Medication Instructions Recorded Confirmed Sulfamethox/Trimeth 800/160 1 each PO BID #14 tablet 01/03/20 01/05/20 [Bactrim Ds] cephALEXin [Keflex] 500 mg PO Q6H #28 capsule 01/03/20 01/05/20 Ibuprofen [Motrin] 800 mg PO Q6H PRN 01/05/20 01/05/20 Meloxicam [Mobic] 15 mg PO DAILY PRN #20 tablet 07/24/21 methocarbamoL [Robaxin] 500 mg PO Q6H PRN #20 tablet 07/24/21 methylPREDNISolone [Medrol] 4 mg PO DAILY #1 tab 07/24/21 - Allergies Allergies/Adverse Reactions: Allergies Allergy/AdvReac Type Severity Reaction Status Date / Time hydrocodone Allergy Intermediate Rash Verified 07/24/21 19:19 - Social History Does the pt smoke?: No Smoking Status: Never smoker Does the pt drink ETOH?: Yes Does the pt have substance abuse?: No - Immunizations Immunizations are current?: Yes - POLST Patient has POLST: No POLST Status: Full Code PD ED PE NORMAL - Vitals Vital signs reviewed: Yes - General General: Alert and oriented X 3, No acute distress - HEENT HEENT: Moist mucous membranes - Neck Neck: Supple, no meningeal sign - Cardiac Cardiac: RRR - Respiratory Respiratory: No respiratory distress, Clear bilaterally - Abdomen Abdomen: Soft, Non tender, Non distended - Back Back: No spinal TTP, Other (No midline tenderness to palpation or percussion. No step-off or deformity. No paraspinal spasm.) - Derm Derm: Warm and dry - Extremities Extremities: No edema, No calf tenderness / cord, Other (Normal bilateral lower extremity patellar and ankle jerk reflexes. Normal great toe extension bilaterally. 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, No motor deficit, No sensory deficit, Normal speech - Psych Psych: Normal mood, Normal affect Results - Vitals Vitals: Vital Signs - 24 hr 07/24/21 07/24/21 19:19 21:18 Temperature 36.5 C 36.7 C Heart Rate 75 62 Respiratory 16 14 Rate Blood Pressure 150/77 H 144/72 H O2 Saturation 100 100 Oxygen O2 Source Room air PD MEDICAL DECISION MAKING - ED course Complexity details: reviewed results, re-evaluated patient, considered differential (No cauda equina, no spinal epidural abscess, no fracture, no aortic dissection or evidence of aneursym rupture), d/w patient ED course: Pain improved with Toradol, Decadron and Robaxin. Ambulating well. No evidence of cauda equina, epidural abscess. No indication for emergent imaging. Patient counseled regarding signs and symptoms for which I believe and urgent re-evaluation would be necessary. Patient with good understanding of and agreement to plan and is comfortable going home at this time This document was made in part using voice recognition software. While efforts are made to proofread this document, sound alike and grammatical errors may occur. Departure - Departure Disposition: 01 Home, Self Care Clinical Impression: Back pain Qualifiers: Back pain location: low back pain Chronicity: acute Back pain laterality: bilateral Sciatica presence: without sciatica Qualified Code(s): M54.50 - Low back pain, unspecified Condition: Good Instructions: ED Low Back Pain Injury Follow-Up: SANTINO DUEÑAS MD [Primary Care Provider] - Prescriptions: methylPREDNISolone [Medrol] 4 mg PO DAILY #1 tab Meloxicam [Mobic] 15 mg PO DAILY PRN #20 tablet PRN Reason: pain methocarbamoL [Robaxin] 500 mg PO Q6H PRN #20 tablet PRN Reason: muscle spasm Comments: Your prescriptions were sent to [facility] in [place]. Please follow-up with your doctor for further care. Return if you worsen. Your doctor will likely want you to continue physical therapy and may want to order an MRI after the inflammation has decreased. Do not drive or operate heavy machinery while taking the Robaxin. Discharge Date/Time: 07/24/21 21:19
[2021-07-24 21:20] VITALS: BP 144/72
== END 2021-07-24 21:19 | disposition home or self-care (01) ==
LOC: ED 19:16
DX: M54.50 Low back pain, unspecified (principal); G89.29 Other chronic pain
CPT/HCPCS: 96372; 99282; 99283; A9270